=== PATIENT | male | born 1995 | race Caucasian/White ===

== ENCOUNTER 2016-10-08 01:34 | Emergency (ER) | payer BC ==
[~2016-10-08] VITALS: Ht 175.3 cm; Wt 77.0 kg
[2016-10-08 01:36] VITALS: BP 146/85; PULSE 67; RESP 14; TEMP 97.6; O2SAT 100
[2016-10-08 04:00] VITALS: BP 132/78; PULSE 61; RESP 16; O2SAT 100
--- NOTE | 2016-10-08 04:40 | PD ---
HPI . Testicular pain and swelling Chief Complaint: Pain: Acute or Chronic Time Seen by Provider: 03:39 Travel History International Travel<30 days: No Contact w/Intl Traveler<30days: No Traveled to known affect area: No History of Present Illness HPI Patient presents with intermittent testicular pain and swelling for the last several months. He states that he has been evaluated by a doctor on campus as well as by his primary care physician back home in [place] for this. The etiology has not yet been determined. Symptoms occur intermittently. He states sometimes it seems to be on the right and sometimes it seems to be on the left. He states that he has a fullness and pain along with swelling wrote him. He denies any penile discharge or urinary tract symptoms. [facility] Past Medical History ADD: Yes (as a child) Asthma: Yes (as a child) Diminished Hearing: No Past Surgical History Oral Surgery: Yes (wisdom teeth) Social History Alcohol Use: Yes (moderation) Tobacco Use: No (just quitting) Substance Use: No Allergies-Medications (Allergen,Severity, Reaction): Coded Allergies: No Known Allergies (Unverified , 10/08/16) Reported Meds & Prescriptions Reported Meds & Active Scripts Active No Active Prescriptions or Reported Medications Review of Systems Except as stated in HPI: all other systems reviewed are Neg General / Constitutional: No: Fever, Chills Gastrointestinal: No: Nausea, Vomiting Genitourinary: No: Urgency, Frequency, Dysuria, Discharge Physical Exam Narrative GENERAL: Healthy-appearing young man in no distress SKIN: Warm and dry. HEAD: Atraumatic. Normocephalic. EYES: Pupils equal and round. ENT: No nasal bleeding or discharge. Mucous membranes pink and moist. NECK: Trachea midline. CARDIOVASCULAR: Regular rate and rhythm. RESPIRATORY: No accessory muscle use. GASTROINTESTINAL: Abdomen soft, non-tender, nondistended. : Normal circumcised male. No penile discharge. No testicular tenderness or swelling. No epididymal tenderness or swelling. No hernia palpated on either side when he stands and coughs. MUSCULOSKELETAL: No obvious deformities. No edema. NEUROLOGICAL: Awake and alert. No obvious cranial nerve deficits. Motor grossly within normal limits. Normal speech. PSYCHIATRIC: Appropriate mood and affect; insight and judgment normal. Data Data Last Documented VS Vital Signs Date Time Temp Pulse Resp B/P Pulse Ox O2 Delivery O2 Flow Rate FiO2 10/08/16 01:36 97.6 67 14 146/85 100 Room Air Orders Us Testicles W Doppler (10/08/16 03:39) Urinalysis - C+S If Indicated (10/08/16 03:39) Gc And Chlamydia Pcr (10/08/16 03:39) Labs Laboratory Tests Test 10/08/16 05:15 Urine Color LIGHT-YELLOW Urine Turbidity CLEAR Urine pH 6.5 Urine Specific [place] 1.008 Urine Protein NEG mg/dL Urine Glucose (UA) NEG mg/dL Urine Ketones NEG mg/dL Urine Occult Blood NEG Urine Nitrite NEG Urine Bilirubin NEG Urine Urobilinogen LESS THAN 2.0 MG/DL Urine Leukocyte Esterase NEG Urine RBC LESS THAN 1 /hpf Urine WBC 1 /hpf Microscopic Urinalysis Comment CULT NOT INDICATED MDM Medical Decision Making Medical Screen Exam Complete: Yes Emergency Medical Condition: Yes Differential Diagnosis Differential diagnosis of testicular pain includes but is not limited to hernia , torsion, epididymoorchitis, groin strain. Narrative Course Patient presents for evaluation of intermittent testicular pain and swelling. I have ordered an ultrasound, a UA and a GC/chlamydial DNA probe. Last Impressions Scrotum Ultrasound 10/08/16 0339 Signed Impressions: Service Date/Time: Saturday, October 08, 2016 04:20 - CONCLUSION: 1. No evidence of torsion or testicular mass 2. Bilateral epididymal cysts Benson Cesar MD UA is negative. Diagnosis Primary Impression: Epididymal cyst Referrals: Jose G Waller MD 1 week Scripts No Active Prescriptions or Reported Meds Disposition: 01 DISCHARGE HOME Condition: Stable Agnes Ramos MD Oct 08, 2016 04:40
--- NOTE | 2016-10-08 05:20 | RADRPT ---
EXAM DATE/TIME: 10/08/2016 04:20 [facility] COMPARISON: No previous studies available for comparison. INDICATIONS : Testicle pain. MEDICAL HISTORY : Asthma. Testicle pain. SURGICAL HISTORY : Devers teeth extractions. ENCOUNTER: Initial ACUITY: 3 weeks PAIN SCORE: 3/10 LOCATION: Bilateral testicles. MEASUREMENTS: RIGHT TESTICLE: 2.9 x 2.2 x 4.3cm LEFT TESTICLE: 2.9 x 2.2 x 3.6cm FINDINGS: Ultrasound examination of the testicles demonstrates normal size bilaterally. There is normal Doppler flow bilaterally without evidence of mass. Bilateral epididymal cysts are present. No hydrocele is s een. There is a 4 mm calcification extra testicular in the right of doubtful clinical significance. CONCLUSION: 1. No evidence of torsion or testicular mass 2. Bilateral epididymal cysts Benson Cesar MD on October 08, 2016 at 5:16 Board Certified Radiologist. This report was verified electronically.
[2016-10-08 05:36] LABS: BLOOD, URINE NEG (NEG); COMMENT (UR) CULT NOT INDICATED; CULTURE IF INDICATED CULT NOT INDICATED; GLUCOSE,URINE NEG (NEG); KETONE, URINE NEG (NEG); NITRITE,URINE NEG (NEG); PH, URINE 6.5 (5.0-8.5); URINE COLOR LIGHT-YELLOW (YELLW/STRAW)
[2016-10-08 07:10] LABS: CHLAMYDIA PCR NOT DETECTED (NOT DETECT); NEISSERIA PCR NOT DETECTED (NOT DETECT)
== END 2016-10-08 06:08 | disposition home or self-care (01) ==
LOC: NEPC 01:34
DX: N50.3 Cyst of epididymis (principal)
CPT/HCPCS: 76870; 81001; 87491; 87591; 93975